=== PATIENT | female | born 1995 | race Asian ===

== ENCOUNTER 2018-02-11 23:03 | Emergency (ER) | payer OTHER ==
[~2018-02-11] VITALS: Ht 160 cm; Wt 67.0 kg
[2018-02-11] MEDS ORDERED: FAMOTIDINE 20 MG TABLET PO ONE (23:30)
[2018-02-11] MEDS ORDERED: DIPHENHYDRAMINE 25 MG CAPSULE PO ONE (23:30)
[2018-02-11] MEDS ORDERED: FAMOTIDINE 20 MG TABLET ONE (23:38)
[2018-02-11] MEDS ORDERED: DIPHENHYDRAMINE 25 MG CAPSULE ONE (23:38)
[2018-02-12] MEDS ORDERED: ONDANSETRON ODT 4 MG ONE (00:55)
[2018-02-12] MEDS ORDERED: ONDANSETRON ODT 4 MG PO ONE (01:00)
[2018-02-12 01:43] VITALS: BP 104/70
== END 2018-02-12 01:56 | disposition home or self-care (01) ==
LOC: ED 23:59
DX: T78.05XA Anaphylactic reaction due to tree nuts and seeds, initial encounter (principal); L50.0 Allergic urticaria; R06.00 Dyspnea, unspecified; X58.XXXA Exposure to other specified factors, initial encounter
CPT/HCPCS: 99284; J7512; Q0162; Q0163